=== PATIENT | female | born 1935 | race Caucasian/White ===

== ENCOUNTER → 2017-06-08 08:30 | Outpatient (CLI) | payer MEDICARE, SELFPAY ==
--- NOTE | 2017-06-08 08:37 | MM_ITS ---
. MM Dig screening mamm BI w/CAD CAD Screening ORDERING PHYSICIAN : Kermit Kim PATIENT AGE: 81 years GENDER: Female INDICATION: 81-year-old with previous left breast lumpectomy for malignancy.. No hormones no new complaints COMPARISON: Previous mammograms: February 2016, 2015 & 2014\ TECHNIQUE: Standard CC and MLO images were obtained. R2 CAD reviewed. FINDINGS: Mild to moderate breast density with Mild to moderate residual fibroglandular elements. Throughout both breast. RIGHT BREAST: No new areas of concern on the right. Stable appearance. LEFT BREAST:Scarring and mild architectural distortion superior left breast from previous lumpectomy. Decreased size of the left results due to the prior surgery with apparent significant size lumpectomy resection. No recurrent disease. No new areas of concern. Here at the left breast =====IMPRESSION: ==== No significant interval change Bilateral Follow-up in one year recommended Stable Postsurgical changes at the left breast from the left lumpectomy. No new findings left breast. Right breast unchanged. BI-RADS Category: 2 Benign Finding(s) RECOMMENDED FOLLOW-UP: 1YR - 1 YEAR FOLLOW-UP (A letter has been sent to the patient regarding results of the study.)
== END ==
PROVIDERS: Family Provider Internal Medicine Adolescent Medicine; PCP Internal Medicine; Visit Provider Internal Medicine
DX: Z12.31 Encounter for screening mammogram for malignant neoplasm of breast (principal)
CPT/HCPCS: 77067

== ENCOUNTER → 2019-08-07 11:04 | Outpatient (CLI) | payer MEDICARE, SELFPAY ==
[2019-08-07 13:34] LABS: Coronavirus 19 IgG Antibody Negative (Negative); Coronavirus 19 IgM Antibody Negative (Negative)
== END ==
PROVIDERS: Visit Provider Internal Medicine Gastroenterology
DX: Z01.818 Encounter for other preprocedural examination (principal)
CPT/HCPCS: 36415; 86328; 88305

== ENCOUNTER 2019-08-08 08:08 | Day surgery (SDC) | payer MEDICARE, SELFPAY ==
[2019-08-04 13:44] VITALS: BMI 38.6
[2019-08-08] VITALS (8 sets, daily range): BP systolic 102–150; BP diastolic 66–80; PULSE 71–89; RESP 18; TEMP 36.7–36.8; O2SAT 92–100
--- NOTE | 2019-08-08 09:13 | P.PN_ITS ---
[facility] Anesthesia Checklist - Patient Identification Patient Identification: Arm Band, Verbal (Name & ) - Structural Data Admitted From: Home Planned Operative Procedure/s: EGD Consent for Planned Operative Procedure(s) Verified: Yes Verified Documents: Surgical Consent, History and Physical - NPO Status Verified Time NPO: 00:00 - Chart Verification Results Verified: None - Additional verifications Anesthesia Reactions: No (states hard to wake) - Airway Assessment C-Spine Mobility Assessed: Yes TMJ Mobility Assessed: Yes Dentition: Partials - Neurological Assessment Level of Consciousness: Awake, Alert, Appropriate, Follows Commands Hx Seizures: No Numbness or tingling in extremities: No - Anesthesia Plan Anesthesia Risk discussed: Yes Anesthesia Plan: Verified ASA Class: III Anesthesia Type: MAC [facility] History I have reviewed the patient's past medical history: Yes Medical History: Reports:: Arrhythmia (irregular), Cancer (breast), Cerebrovascular Accident, Hyperlipidemia, Hypertension, 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 No: Pacemaker Amputation: No Comment: bladder - *Social History Educational Level: Completed GED/General Educational Development Smoking Status: Never smoker Alcohol Intake: never Substance Use Type: denies use *Occupational Status:: retired Housing: house Household Members: family *Travel in the last 8 weeks: None Family Hx:: No significant family history
--- NOTE | 2019-08-08 09:22 | P.PCN_ITS ---
[facility] Procedure Note Procedure Note:: Upper Endoscopy Procedure Report: Esophagogastroduodenoscopy with cold biopsies and TTS balloon dilation Endoscopost: Landon Palmer II, MD Referring Physician: Kermit Kim M.D. Date of Procedure: August 08, 2019 Equipment: Olympus GIF 180 standard upper endoscope Sedation: MAC sedation Indications: Mrs. Pickard is an 83-year-old female who has had chronic persistent nausea. She reports intermittent postprandial heartburn. She has chronic digestive difficulties and had previously been treated by Dr. Jasiel Constantino and she also had been to [facility]. She does have moderate bloating, reduced appetite and early satiety. She also reports constipation/obstipation. She has had a couple of bouts of dysphagia with solid foods in the last year. She has never had an upper endoscopy. She could not use Citrucel powder. She reports no abdominal pain or weight loss. She reports no melena. Procedure: Prior to the procedure, a history and physical exam was performed, and patient's medications and allergies were reviewed. The risks, benefits and alternatives of the sedation and procedure were discussed with the patient. All questions were answered and informed consent was obtained. The patient was brought to the procedure room. Patient identification and proposed procedure were verified by the physician and the nurse. The patient was placed in a left lateral decubitus position and the scope was passed under direct vision. Throughout the procedure, the patient's blood pressure, pulse, and oxygen saturations were monitored continuously. The upper GI endoscopy was accomplished without difficulty. The patient tolerated the procedure well. Findings: The scope was passed directly into the upper esophagus and advanced to the third portion of the duodenum. The post bulbar duodenum and duodenal bulb were normal with normal mucosa and conniventes. The scope was withdrawn through a normal duodenal bulb and pylorus into the stomach. There was moderate linear reactive gastropathy of the antrum with erosions. There was mild atrophy of the body and fundus of the stomach. Upon retroflexion there was a small 1 to 2 cm sliding hiatal hernia. 2 biopsies were taken in the antrum and along the lesser curvature for histology to rule out gastritis and/or H pylori. The scope was then withdrawn into the esophagus. There was grade A reflux esophagitis. There was a distal ring. There were moderate tertiary contractions and evidence of esophageal dysmotility. The entire esophagus was dilated to 60 Turkish/20 mm with a TTS hydrostatic balloon. There was some resistance at the cricopharyngeus. The remainder of the esophageal mucosa was normal. Impression: 1. Grade A reflux esophagitis with moderate esophageal dysmotility and very small 1 to 2 cm hiatal hernia 2. Moderate linear reactive gastropathy of antrum/body of stomach Plan: I am going to place patient on PPI therapy. She also needs more aggressive treatment of her obstipation/constipation which are certainly playing a role. I will follow-up the biopsies.
== END 2019-08-08 11:06 | disposition home or self-care (01) ==
LOC: OUTP 08:10
PROVIDERS: PCP Internal Medicine; Visit Provider Internal Medicine Gastroenterology
PROC: 0DJ08ZZ Inspection of Upper Intestinal Tract, Via Natural or Artificial Opening Endoscopic (ICD-10-PCS; CPT 43235; principal; 2019-08-08 09:30)
DX: K21.0 Gastro-esophageal reflux disease with esophagitis (principal); K22.2 Esophageal obstruction; K44.9 Diaphragmatic hernia without obstruction or gangrene; K31.9 Disease of stomach and duodenum, unspecified; I10 Essential (primary) hypertension; I49.9 Cardiac arrhythmia, unspecified; Z86.73 Personal history of transient ischemic attack (TIA), and cerebral infarction without residual deficits; D64.9 Anemia, unspecified; Z85.3 Personal history of malignant neoplasm of breast; Z79.82 Long term (current) use of aspirin; Z79.899 Other long term (current) drug therapy; Z88.0 Allergy status to penicillin
CPT/HCPCS: 43239; 43249; 88305; C1726